=== PATIENT | male | born 1950 | race Caucasian/White ===

== ENCOUNTER 2020-11-04 08:07 | Observation (INO) ==
--- NOTE | 2020-10-07 16:14 | PAT Medication Instructions ---
Medication Instructions Date of Service October 07, 2020 Home Medications aspirin 81 mg tablet,delayed release 81 mg PO HS cyanocobalamin (vitamin B-12) 1,000 mcg tablet 1,000 mcg PO QAM garlic 1,000 mg PO QAM glucosamine-chondroitin 500 mg-400 mg tablet 1 tab PO BID levothyroxine 125 mcg tablet 125 mcg PO QAM lisinopril 5 mg tablet 5 mg PO QAM nitroglycerin 0.4 mg sublingual tablet 0.4 mg SL Q5M PRN omega-3 fatty acids-vitamin E 1 tab PO QAM pantoprazole 40 mg tablet,delayed release 40 mg PO QAM rosuvastatin 20 mg tablet 40 mg PO HS acetaminophen [Tylenol Extra Strength] 500 mg PO Q6H PRN meloxicam 7.5 mg PO DAILY PRN tamsulosin 0.4 mg PO HS Continue as directed nitroglycerin 0.4 mg sublingual tablet 0.4 mg SL Q5M PRN ASK your surgeon for instructions meloxicam 7.5 mg PO DAILY PRN STOP taking 2 weeks before surgery If surgery is within 2 weeks, stop taking as soon as possible. garlic 1,000 mg PO QAM glucosamine-chondroitin 500 mg-400 mg tablet 1 tab PO BID omega-3 fatty acids-vitamin E 1 tab PO QAM DO NOT take the morning of surgery cyanocobalamin (vitamin B-12) 1,000 mcg tablet 1,000 mcg PO QAM lisinopril 5 mg tablet 5 mg PO QAM Take morning of surgery With a small sip of water, OTHERWISE NOTHING TO EAT OR DRINK AFTER MIDNIGHT: levothyroxine 125 mcg tablet 125 mcg PO QAM pantoprazole 40 mg tablet,delayed release 40 mg PO QAM acetaminophen [Tylenol Extra Strength] 500 mg PO Q6H PRN Take evening before surgery aspirin 81 mg tablet,delayed release 81 mg PO HS rosuvastatin 20 mg tablet 40 mg PO HS acetaminophen [Tylenol Extra Strength] 500 mg PO Q6H PRN (if needed) tamsulosin 0.4 mg PO HS Other Notes If you have any questions please call us at [phone] or [phone] or [phone] or [phone]
--- NOTE | 2020-10-10 14:57 | Anesthesiology Consultation ---
Date of Service October 10, 2020 Assessment & Plan (1) Encounter for pre-operative examination: - COVID screening: Per assessment on 10/10: Travel screen negative, no known COVID-19 positive contacts or current COVID-19 related symptoms. Patient fully vaccinated. Surgeon arranging preop COVID testing. Awaiting results. - Cardiology office visit (07/03/20): "CAD status post RCA PCI: He had other residual CAD as well. No angina or heart failure symptoms. Has had occasional atypical chest pain in the past but none recently. Continue aspirin 81 mg daily indefinitely.. Chest pain: Chronic and atypical in the past but none recently. Stress echo was negative in 2017 for the same symptom. No further ischemic evaluation recommended at this time." F/U 6 months. Chart Review Chart Review: Acceptable Risk for Surgery and Patient seen in Pre Admission Testing Teaching & Discussion Pre-Anesthesia Teaching/Discussion Notes: Instructed NPO after midnight before surgery,except medications with 15 cc of water. Medication instructions provided according to the PAT guidelines. History Surgery Operation Date: 11/04/20 07:00 Proposed Procedures p Left Total Hip Arthroplasty - Lino De Luna MD Height/Weight Height: 5 ft 8 in Weight: 75.6 kg Allergies Allergy/AdvReac Type Severity Reaction Status Date / Time Penicillins Allergy Unknown Rash Verified 10/01/20 08:27 Medications Home Medications Medication Instructions Recorded Confirmed Last Taken aspirin 81 mg tablet,delayed 81 mg PO HS tab 03/30/19 10/01/20 Unknown release cyanocobalamin (vitamin B-12) 1,000 mcg PO QAM tab 03/30/19 10/01/20 Unknown 1,000 mcg tablet garlic 1,000 mg PO QAM 03/30/19 10/01/20 Unknown glucosamine-chondroitin 500 mg-400 1 tab PO BID tab 03/30/19 10/01/20 Unknown mg tablet levothyroxine 125 mcg tablet 125 mcg PO QAM tab 03/30/19 10/01/20 Unknown lisinopril 5 mg tablet 5 mg PO QAM #30 tab 03/30/19 10/01/20 Unknown nitroglycerin 0.4 mg sublingual 0.4 mg SL Q5M PRN #1 tab 03/30/19 10/01/20 Unknown tablet omega-3 fatty acids-vitamin E 1 tab PO QAM 03/30/19 10/01/20 Unknown pantoprazole 40 mg tablet,delayed 40 mg PO QAM #30 tab 03/30/19 10/01/20 Unknown release rosuvastatin 20 mg tablet 40 mg PO HS #30 tab 07/03/20 10/01/20 Unknown acetaminophen [Tylenol Extra 500 mg PO Q6H PRN 10/01/20 10/01/20 Unknown Strength] meloxicam 7.5 mg PO DAILY PRN 10/01/20 10/01/20 Unknown tamsulosin 0.4 mg PO HS 10/01/20 10/01/20 Unknown 3-in-1 Commode #1 ea 10/10/20 10/10/20 Unknown Wheeled Walker #1 ea 10/10/20 10/10/20 Unknown Past Medical History Medical History Arthritis BPH (benign prostatic hyperplasia) CAD in [place] artery stent x 1 (2009), stent x1 (2010), follows with [facility] [place] cardiology Degenerative joint disease of left hip Diverticulitis of colon Dyslipidemia Esophageal reflux History of salivary gland cancer s/p excision/radiation (2004) Hypothyroidism Temporomandibular joint disorder + clicking, no locking Exercise / Class Metabolic Activity II 4-5 Yardwork/Stairs/Walk up hill (one flight of stairs (no chest pain, no sob)) Past Surgical History Surgical History Cancer Salivary gland tumor excision (2004) History of colonoscopy S/P coronary artery stent placement stent x 1 (2009), stent x1 (2010) S/P debridement Elbow, knee Past Anesthesia History No Hx of Anesthesia Complications and No Family Hx of Anesthesia Complications History of PONV No Hx of PONV and No Hx of Motion Sickness Social History Smoking Status: Never smoker Do You Dip or Chew Tobacco: No Hx Alcohol Use: No Hx Substance Use: No Review of Systems Rare snoring. Patient denies chest pain, shortness of breath, dyspnea on exertion, fever, chills, cough, wheezing, palpitations. Physical Exam Vital Signs VITALS BP 114/78 P 62 TEMP 98.5 SP02 96%RA RESP 18 PHYSICAL Full cervical extension range of motion (+ cervicalgia) Full TMJ range of motion. TMD 3.5 finger breaths Mallampati Score 3 Dentition: + several missing teeth Lungs: clear throughout to auscultation Cardiac: regular rate and rhythm, no murmurs noted Spine: normal Carotid arteries: negative bruit Extremities: no edema Testing Laboratory Results 10/10/20 15:32 10/10/20 15:32 PT 10.6 Seconds (9.0-12.0) 10/10/20 15:32 INR 1.0 (0.9-1.1) 10/10/20 15:32 APTT 25.4 Seconds (21.0-31.0) 10/10/20 15:32 Blood Type B Positive 10/10/20 15:32 Antibody Screen NEGATIVE 10/10/20 15:32 Electrocardiogram Date: 10/10/20 Findings: + SB @ (59) Chest X-Ray Date: 10/10/20 FINDINGS: PA and lateral chest radiographs are compared to study dated 02/24/2011 and correlated with chest CT dated 04/18/2009. The cardiomediastinal silhouette is unremarkable. The lungs appear hyperinflated. Chronic interstitial thickening is similar to previous. No airspace consolidation or pleural effusion is identified. There is mild bibasilar scarring/atelectasis. There is no pneumothorax. The skeletal structures are osteopenic. The bony thorax appears intact. Degenerative change is noted throughout the thoracic spine. IMPRESSION: No active disease in the chest. Stress Test Date: 02/04/17 Negative stress echo/ECG for ischemia at 88% MPHR. Good exercise tolerance. EF 50 to 60%. Mild concentric LVH. No significant valvular disease. 13 METS.
[2020-10-10 16:05] LABS: Basophils # (auto) 0.02 K/uL (0-0.2); Basophils % (auto) 0.3 %; Eosinophils # (auto) 0.35 K/uL (0-0.5); Eosinophils % (auto) 4.8 %; Hematocrit (blood only) 41.1 % (42-52); Hemoglobin 14.6 g/dL (14.0-18.0); Immature Granulocytes # (auto) 0.01 K/uL (0.00-0.02); Immature Granulocytes % (auto) 0.1 %; Lymphocytes # (auto) 1.49 K/uL (1.2-3.4); Lymphocytes % (auto) 20.3 %; Mean Corpuscular Hemoglobin 31.5 pg (25-34); Mean Corpuscular Hgb Conc 35.5 g/dL (32-36); Mean Corpuscular Volume 88.8 fL (80-100); Monocytes # (auto) 0.52 K/uL (0.11-0.59); Monocytes % (auto) 7.1 %; Neutrophils # (auto) 4.96 K/uL (1.4-6.5); Neutrophils % (auto) 67.4 %; Platelet Count 180 K/uL (130-400); RDW Coefficient of Variation 12.8 % (11.5-14.5); RDW Standard Deviation 41.4 fL (36.4-46.3); Red Blood Count 4.63 M/uL (4.7-6.1); White Blood Count 7.35 K/uL (4.8-10.8)
[2020-10-10 16:27] LABS: Partial Thromboplastin Time 25.4 Seconds (21.0-31.0); Prothrombin Time 10.6 Seconds (9.0-12.0)
--- NOTE | 2020-10-10 16:29 | Electrocardiogram Report ---
Test Reason : Blood Pressure : / mmHG Vent. Rate : 059 BPM Atrial Rate : 059 BPM P-R Int : 196 ms QRS Dur : 106 ms QT Int : 394 ms P-R-T Axes : 077 068 065 degrees QTc Int : 390 ms Sinus bradycardia Otherwise normal ECG When compared with ECG of 05-OCT-2011 15:15, No significant change was found Confirmed by Von Phillips ([id number]) on 10/10/2020 4:29:05 PM Referred By: Lino De Luan Confirmed By:Guillermo Phillips
--- NOTE | 2020-10-10 16:31 | XRay Report ---
TWO VIEW CHEST CLINICAL HISTORY: Preoperative examination. History of lymphoma. FINDINGS: PA and lateral chest radiographs are compared to study dated 02/24/2011 and correlated with c hest CT dated 04/18/2009. The cardiomediastinal silhouette is unremarkable. The lungs appear hyperinf lated. Chronic interstitial thickening is similar to previous. No airspace consolidation or pleural e ffusion is identified. There is mild bibasilar scarring/atelectasis. There is no pneumothorax. The sk eletal structures are osteopenic. The bony thorax appears intact. Degenerative change is noted throug hout the thoracic spine. IMPRESSION: No active disease in the chest. ACT 112: Negative or not required by law. Electronically signed by: Mathew Garcia M.D. 10/10/2020 4:29 PM
[2020-10-10 16:33] LABS: BUN Creatinine Ratio 12.1 (10-20); Calcium 9.1 mg/dl (8.5-10.1); Creatinine Clr Calc Pharmacy 57.7 ml/min; Est GFR (African American) 75.7; Est GFR (Non-African American) 65.3; Potassium 4.5 mmol/L (3.5-5.1)
[~2020-11-04 08:07] MED LIST: ACETAMINOPHEN 500 MG TAB PO SCH; BUPIVACAINE 0.5 % 5 MG/1 ML PF 10ML VIAL ONE; FAMOTIDINE 20 MG TAB PO SCH; GABAPENTIN 300 MG CAP PO SCH; LACTATED RINGER'S 1,000 ML IV SCH; LR 500ML BOLUS, THEN 15ML/HR IV SCH; METOCLOPRAMIDE HCL 10 MG TABLET PO SCH; TRANEXAMIC ACID 1,000 MG **IV Pre-op IV SCH; ceFAZolin 2000MG 2,000 MG/15 ML SYR IV SCH
--- NOTE | 2020-11-04 08:47 | History & Physical Bridge Note ---
Date of Service November 04, 2020 History & Physical Bridge Note I have examined the patient, reviewed the History & Physical and in the interval since the performance of the History & Physical I have noted the following changes of clinical significance: no changes noted
[2020-11-04] MEDS ORDERED: MoRPHine SULFATE PF 1 MG/ML 10 ML AMP/VIAL ONE (08:49)
[2020-11-04] MEDS ORDERED: fentaNYL citrate 100 MCG/2 ML VIAL ONE (10:05)
[2020-11-04] MEDS ORDERED: MIDAZOLAM HCL 1 MG/ML 2ML VIAL ONE (10:05)
[2020-11-04] MEDS ORDERED: BUPIVACAINE/EPINEPHRINE 0.5% MPF 1:200,000 30 ML VIAL ONE (10:35)
[2020-11-04] MEDS ORDERED: MoRPHine SULFATE PF 1 MG/ML 10 ML AMP/VIAL INT SPINAL ONE (10:57)
[2020-11-04] MEDS ORDERED: diphenhydrAMINE 50 MG/ML VIAL IV PRN (10:57)
[2020-11-04] MEDS ORDERED: NALOXONE HCL 0.08 MG in SYRINGE 1.8 ML IV PRN (10:57)
[2020-11-04] MEDS ORDERED: ePHEDrine sulfate 50 MG/ML AMP IV PRN ×2 (10:57→10:58)
[2020-11-04] MEDS ORDERED: NALOXONE HCL 0.4 MG/1 ML VIAL/CARP IV PRN ×2 (10:57→14:07)
[2020-11-04] MEDS ORDERED: LACTATED RINGER'S 500 ML IV PRN (10:57)
[2020-11-04] MEDS ORDERED: HYDROmorphone INJ 0.5 MG/0.5 ML SYR IV PRN (10:57)
[2020-11-04] MEDS ORDERED: ONDANSETRON INJ 2 MG/ML 2 ML VIAL IV PRN (10:57)
[2020-11-04] MEDS ORDERED: NALOXONE HCL 1 MG in SODIUM CHLORIDE 0.9% 1000ML 1,000 ML IV PRN (10:57)
[2020-11-04] MEDS ORDERED: ATROPINE SULFATE 0.1 MG/ML 10ML SYR IV PRN (10:58)
[2020-11-04] MEDS ORDERED: SODIUM CHLORIDE 0.9% 1000ML 1,000 ML IV SCH (11:00)
[2020-11-04] MEDS ORDERED: DC INTRASPINAL MORPHINE SCH (11:00)
[2020-11-04] MEDS ORDERED: NO NARCOTICS OR SEDATIVES SCH (11:00)
[2020-11-04] MEDS ORDERED: ePHEDrine sulfate 50 MG/ML AMP ONE (11:26)
[2020-11-04] MEDS ORDERED: ONDANSETRON INJ 2 MG/ML 2 ML VIAL ONE (11:26)
[2020-11-04] MEDS ORDERED: SODIUM CHLORIDE 0.9% INJ 10 ML VIAL ONE (11:27)
--- NOTE | 2020-11-04 12:31 | Operative Report ---
Post Operative Report Pre & Post Diagnosis Operation Date: 11/04/20 10:40 Pre-Op Diagnosis: Left Hip Osteoarthritis Post-Op Diagnosis: Left Hip Osteoarthritis I identified the patient and participated in the time-out.: Yes Procedure Operation Date: 11/04/20 10:40 Actual Procedures p Left Total Hip Arthroplasty(Left) - Lino De Luna MD Surgeon Lino De Luna MD Revenue Inspector MIRACLE Gaines Estimated Blood Loss 200 Findings Consistent with Post-Op Diagnosis Operative findings revealed advanced left hip DJD. Extensive grade 4 [id number] disease of the femoral head and acetabulum. He had moderate delay sized anterior acetabular osteophytes. Moderate-sized joint effusion. Very stiff hip. Fluids 1200 cc. Specimens Left femoral head sent for pathology. Drains None. Anesthesia Type Spinal MAC Disposition Accompanied Patient To Recovery: Yes Disposition: Recovery Room Indications Patient is 70-year-old gentleman who has had a several year history of progressive hip pain particular on the left side. Has been through extensive conservative treatment the past which became less successful. He failed all conservative measures and elected proceed with total hip arthroplasty. Description of Procedure Operative implants consist of: 1. Biomet G7 size 58 mm acetabular shell. 2. Biomet size 6.5 cancellous acetabular screws 1 of 35 mm in length and 1 of 25 mm length. 3. Herreid hole addictions recovery specialist. 4. Highly cross-linked polyethylene liner with a 58 mm outer diameter and 36 mm inner diameter. 5. DePuy Corail size 11 KLA femoral stem. 6. +8.5/36 mm ceramic articular ball. Patient was taken to the operating, identified, and placed on the operating table supine position but all contact areas were properly padded. IV antibiotics tried by anesthesia team. A spinal anesthetic had been implemented holding area. Chow catheter was placed in sterile fashion. Patient then placed in the right lateral decubitus position. An axillary roll was placed. A Stulberg hip positioner was used for positioning. All contact areas were meticulously padded and the left hip and leg were then prepped and draped in usual sterile fashion. A posterior lateral approach to the left hip was then performed to a curvilinear incision centered over the greater trochanter. Sharp dissection Through subcutaneous tissue down to level the IT band gluteal fascia the IT band gluteal fascia were incised longitudinally in line with skin incision. The underlying greater trochanteric bursa was excised. The piriformis and external rotators were tagged and taken off the posterior aspect hip joint capsule. Great care was taken throughout the procedure protect the sciatic nerve at all times. A posterior capsulotomy was then performed leaving a large flap for later repair. Hip was internally rotated and dislocated. Femoral neck osteotomy cut was made with Final Cut about 10 mm above the lesser trochanter. Femoral head was removed and sent for pathology. The femur was retracted anteriorly. Attention drawn the acetabulum. The acetabular labrum was excised. The pulmonary fat was excised. Sequential reaming the acetabular was then performed begin with a size 47 and progressing up to 57. I then reamed a little bit with a 58 reamer. A 58 mm Biomet G7 acetabular shell was then placed in about 40 degrees lateral opening and 20 degrees of anteversion. Was fixed with two 6.5 cancellous acetabular screws. An anterior osteophyte was removed. A trial liner was placed. Attention drawn the femur. The proximal femur was entered with a cookie-cutter followed by canal finder. I then broached begin the size 8 and progressed up to 11. Got excellent fit. He had excellent cancellous bone support. Calcar reamer was used smooth off the calcar. I then trialed the hip. He had a lot of offset in his the [place] femoral neck. After a several trials we elected to use the +8.5 neck length option. His hip was fully stable in full extension and external rotation flexion to 9 degrees internal rotation to over [address] I elect to place these implants. Nupathe all trial implants were removed. An apex hole addictions recovery specialist was placed but highly cross-linked polyethylene liner was placed. A DePuy size 11 KLA femoral stem was impacted in position. +8.5/36 mm ceramic articular ball was placed. Hip was located once again found to be stable. Attention drawn toward closing. The wounds irrigated scope soft pulsatile lavage solution. I did inject locally with 60 cc of half percent Marcaine with epinephrine. The posterior capsule and external rotators were repaired through drill holes in the posterior trochanter with #2 Tycron suture. The IT band gluteal fascia then closed in 1 PDS suture running fashion for subcutaneous tissue then closed with 2 layers the deep layer #1 Vicryl suture subcutaneous tissue with 2-0 Dexon suture in a buried interrupted fashion the skin was closed skin mera. Legs then cleaned dried a sterile dressing both Xeroform, 4 x 4's, sterile ABD pads and foam tape was applied. The patient then transferred to the recovery room in stable condition. Patient tolerated procedure well and there were no complications. Avelino Gaines, my physician assistant professor nurse education, was present for the entire procedure. His assistance was essential and required for appropriate patient positioning, prepping and draping, surgical exposure, performing the technical details of the operation, placement the implants, closure of the wound, and placement of the sterile bandage. I attest to the content of the Intraoperative Record and any orders documented therein. Any exceptions are noted below.
--- NOTE | 2020-11-04 12:42 | XRay Report ---
XR hip 1V LT w pelvis HISTORY: 70 years-old Male IN PACU - A/P PELVIS and LATERAL HIP left hip total joint arthroplasty COMPARISON: Pelvis radiograph 04/19/2019 TECHNIQUE: AP view the pelvis with crosstable lateral view of the left hip FINDINGS: Moderate right hip osteoarthritis. Mild osseous excrescence of the proximal right femoral diaphysis. Left hip total joint arthroplasty. Expected postoperative soft tissue swelling and deep tissue air wi th lateral skin mera. No acute fracture, malalignment or unexpected opaque foreign body. IMPRESSION: Left hip total joint arthroplasty with expected postoperative changes. ACT 112: Negative or not required by law. The above report was generated using voice recognition software. It may contain grammatical, syntax o r spelling errors. Electronically signed by: Erick Rhodes M.D. 11/04/2020 12:41 PM
--- NOTE | 2020-11-04 13:07 | Anesthesiology Progress Note ---
Date of Service November 04, 2020 Anesthesia Post Procedure Vital Signs Vital Signs: Temp Pulse Pulse Resp BP Pulse Ox 11/04/20 12:55 36.4 C L 56 L 18 118/76 97 11/04/20 12:45 58 L 18 119/74 99 11/04/20 12:35 60 15 120/65 96 11/04/20 12:25 62 1 L 18 112/71 95 11/04/20 12:19 36.4 C L 64 12 L 12 118/66 96 11/04/20 09:31 36.7 C 56 L 18 142/93 H 96 11/04/20 08:46 36.4 C L 62 16 146/87 H 97 Pain Intensity Left Hip: Pain Intensity: 6 Transfer of Care Handoff Completed per policy Notes Mental Status: alert / awake / arousable and participated in evaluation Nausea / Vomiting: adequately controlled Pain: adequately controlled Airway Patency, RR, SpO2: stable & adequate BP & HR: stable & adequate Hydration State: stable & adequate Neuraxial Anesthesia: was administered and sensory block is resolving Anesthetic Complications: no major complications apparent and Pt Satisfied with anesthetic care
[2020-11-04] MEDS ORDERED: bisacodyL 10 MG SUPP PR PRN (14:07)
[2020-11-04] MEDS ORDERED: ALUMINUM/MAGNESIUM SUSP 30 ML UDC PO PRN (14:07)
[2020-11-04] MEDS ORDERED: MAGNESIUM HYDROXIDE SUSP 30 ML UDC PO PRN (14:07)
[2020-11-04] MEDS ORDERED: NITROGLYCERIN SL 0.4 MG/TAB TAB SL PRN (14:07)
[2020-11-04] MEDS: ACETAMINOPHEN 500 MG TAB PO SCH ×2 (15:10→22:21)
[2020-11-04] MEDS: SODIUM CHLORIDE 0.9% 1000ML 1,000 ML IV SCH (15:11)
[2020-11-04] MEDS: ASCORBIC ACID 500 MG TAB PO SCH (17:26)
[2020-11-04] MEDS: ceFAZolin 1000MG 1,000 MG/7.5 ML SYR IV SCH (18:00)
[2020-11-04] MEDS: KETOROLAC TROMETHAMINE 15 MG/ML VIAL IV SCH ×2 (18:15→23:43)
[2020-11-04] MEDS ORDERED: TRANEXAMIC ACID / 0.7% NACL 1,000 MG/100 ML BAG IV SCH (19:00)
[2020-11-04] MEDS: ASPIRIN 81 MG ECTAB PO SCH (20:14)
[2020-11-04] MEDS: DOCUSATE SODIUM 100 MG CAP PO SCH (20:14)
[2020-11-04] MEDS ORDERED: ROSUVASTATIN CALCIUM 20 MG TAB PO SCH (21:00)
[2020-11-04] MEDS ORDERED: SENNA 8.6 MG TAB PO SCH (21:00)
[2020-11-04] MEDS ORDERED: TAMSULOSIN HCL 0.4 MG CAP PO SCH (21:00)
[2020-11-05] MEDS: ceFAZolin 1000MG 1,000 MG/7.5 ML SYR IV SCH (02:01)
[2020-11-05] MEDS: SODIUM CHLORIDE 0.9% 1000ML 1,000 ML IV SCH (04:25)
[2020-11-05] MEDS ORDERED: HYDROmorphone INJ 0.5 MG/0.5 ML SYR IV PRN (04:58)
[2020-11-05] MEDS ORDERED: traMADol HCL 50 MG TABLET PO PRN (04:58)
[2020-11-05] MEDS ORDERED: METOCLOPRAMIDE HCL INJ 5 MG/ML 2 ML VIAL IV PRN (04:58)
[2020-11-05] MEDS ORDERED: ONDANSETRON INJ 2 MG/ML 2 ML VIAL IV PRN (04:58)
[2020-11-05] MEDS: KETOROLAC TROMETHAMINE 15 MG/ML VIAL IV SCH ×2 (05:37→11:05)
[2020-11-05] MEDS: ACETAMINOPHEN 500 MG TAB PO SCH ×2 (05:37→14:14)
[2020-11-05] MEDS ORDERED: KETOROLAC TROMETHAMINE 15 MG/ML VIAL IV SCH (06:00)
[2020-11-05 06:18] LABS: Basophils # (auto) 0.01 K/uL (0-0.2); Basophils % (auto) 0.2 %; Eosinophils # (auto) 0.13 K/uL (0-0.5); Hematocrit (blood only) 34.3 % (42-52); Hemoglobin 11.7 g/dL (14.0-18.0); Immature Granulocytes # (auto) 0.01 K/uL (0.00-0.02); Immature Granulocytes % (auto) 0.2 %; Lymphocytes # (auto) 1.25 K/uL (1.2-3.4); Lymphocytes % (auto) 18.8 %; Mean Corpuscular Hemoglobin 30.8 pg (25-34); Mean Corpuscular Hgb Conc 34.1 g/dL (32-36); Mean Corpuscular Volume 90.3 fL (80-100); Mean Platelet Volume 10.1 fL (7.4-10.4); Monocytes # (auto) 0.79 K/uL (0.11-0.59); Monocytes % (auto) 11.9 %; Neutrophils # (auto) 4.47 K/uL (1.4-6.5); Neutrophils % (auto) 66.9 %; Platelet Count 128 K/uL (130-400); RDW Coefficient of Variation 12.5 % (11.5-14.5); RDW Standard Deviation 41.4 fL (36.4-46.3); White Blood Count 6.66 K/uL (4.8-10.8)
[2020-11-05] MEDS ORDERED: LEVOTHYROXINE SODIUM 125 MCG TABLET PO SCH (06:30)
[2020-11-05 07:10] LABS: BUN Creatinine Ratio 13.7 (10-20); Calcium 8.5 mg/dl (8.5-10.1); Creatinine Clr Calc Pharmacy 50.7 ml/min; Est GFR (African American) 66.3 ml/min; Est GFR (Non-African American) 57.2 ml/min; Potassium 4.6 mmol/L (3.5-5.1)
[2020-11-05] MEDS ORDERED: dexAMETHasone 10 MG in SYRINGE 0 ML IV SCH (08:00)
[2020-11-05] MEDS: ASPIRIN 81 MG ECTAB PO SCH (08:30)
[2020-11-05] MEDS: ASCORBIC ACID 500 MG TAB PO SCH (08:30)
[2020-11-05] MEDS: DOCUSATE SODIUM 100 MG CAP PO SCH (08:30)
[2020-11-05] MEDS ORDERED: CYANOCOBALAMIN 500 MCG TABLET (VITAMIN B-12) PO SCH (09:00)
[2020-11-05] MEDS ORDERED: VITAMIN E PO SCH (09:00)
[2020-11-05] MEDS ORDERED: MULTIVITAMIN TAB PO SCH (09:00)
[2020-11-05] MEDS ORDERED: OMEGA 3 FATTY ACIDS PO SCH (09:00)
[2020-11-05] MEDS ORDERED: lisinopril 5 MG TAB PO SCH (09:00)
[2020-11-05] MEDS ORDERED: NON-FORMULARY MEDICATION (Garlic 1,000 MG) PO SCH (09:00)
[2020-11-05] MEDS ORDERED: PANTOprazole 40 MG TAB PO SCH (09:00)
--- NOTE | 2020-11-05 16:17 | Progress Notes ---
DATE: 11/05/2020 SUBJECTIVE: A 70-year-old gentleman postop day 1 from a left hip replacement. He is doing well. Pain is controlled. Therapy went pretty well. No chest pain or shortness of breath. Not feeling dizzy or lightheaded. He is hoping to go home. OBJECTIVE: VITAL SIGNS: Temperature 36.8. Vital signs stable. GENERAL: Reveals a pleasant, middle-aged male. He is lying in bed, looks comfortable. EXTREMITIES: Examination of the left leg reveals the leg lengths to be equal. Dressing is clean, dry and intact. Thigh is soft and supple. He is neurologically intact. LABORATORY DATA: Hemoglobin is 11.7. Hematocrit 34.3. Electrolytes are stable. ASSESSMENT: A 70-year-old gentleman postop day 1 from a left hip replacement, doing pretty well. Pain is controlled. Hip is located. He is neurologically intact. PLAN: 1. DVT prophylaxis including thigh-high TEDs, SCDs, and aspirin twice a day. 2. PT/OT. Weight bear as tolerated. Left total hip protocol. 3. Pain control, doing well with current pain regimen. 4. Disposition: Plan to discharge to home later today.
--- NOTE | 2020-11-07 06:39 | Discharge Summary ---
Date of Service November 07, 2020 Discharge Data Procedures Performed Operation Date: 11/04/20 10:40 Actual Procedures p Left Total Hip Arthroplasty(Left) - Lino De Luna MD Hospital Course (1) Status post total hip replacement, left: This patient is a 70 year old male admitted on 11/04/20 and underwent total hip arthroplasty. He tolerated the procedure well and there were no complications. Transferred to the PACU post op and later to the orthopedic floor for further care. He was given ancef for antibiotic prophylaxis. He was also given ANGELINE stockings, SCDs, and aspirin for DVT prophylaxis. Hemoglobin, hematocrit, and vital signs were monitored during his hospital stay and remained stable. Did not require any blood transfusions. There were no complications during his hospital stay. By post op day #1 the patient was tolerating a regular diet, pain was reasonably controlled with oral pain medicine, and he was participating in physical therapy. On post op day #1 the patient was discharged home and set up with home health care. He was given printed discharge instructions including prescriptions for extra strength tylenol, aspirin, and tramadol. Continue physical therapy, weight bearing as tolerated. Continue hip precautions. Continue ANGELINE stockings. Follow up approximately 2 weeks post op or sooner if there are problems or concerns. Coding Level of Care Code None Diagnoses Status post total hip replacement, left Z96.642
== END 2020-11-05 16:33 | disposition home health service (06) ==
LOC: ASU 08:07 → 3E 08:07
DX: I25.10 Atherosclerotic heart disease of native coronary artery without angina pectoris; E03.9 Hypothyroidism, unspecified; E78.5 Hyperlipidemia, unspecified; Z79.890 Hormone replacement therapy; Z88.0 Allergy status to penicillin; K21.9 Gastro-esophageal reflux disease without esophagitis; M16.12 Unilateral primary osteoarthritis, left hip; Z95.5 Presence of coronary angioplasty implant and graft; Z79.899 Other long term (current) drug therapy; Z79.82 Long term (current) use of aspirin; G47.33 Obstructive sleep apnea (adult) (pediatric)